=== PATIENT | female | born 1970 | race Caucasian/White ===

== ENCOUNTER 2023-03-02 12:27 | Emergency (ER) | payer BC ==
[2023-03-02 12:52] VITALS: BP 111/65; PULSE 66; RESP 18; TEMP 97.5
--- NOTE | 2023-03-02 14:42 | ED ---
General Adult HPI - General Source: patient, RN notes reviewed Mode of arrival: ambulatory Limitations: no limitations <Angela Morocho - Last Filed: 03/02/23 14:37> - General Source: patient, RN notes reviewed, old records reviewed <Zay Calderon - Last Filed: 03/02/23 23:36> - General Chief complaint: Abdominal Pain Stated complaint: Abd Pain Time Seen by Provider: 03/02/23 14:40 - History of Present Illness Initial comments: 52 year old female presents to the emergency department for evaluation of lower abdominal pain. She states that it has been going on for around 6 weeks. She has seen her specialty therapist for this and followed with a GI doctor in [place]. She reports that she has not had any recent imaging of her abdomen. She denies fever , chills, nausea, vomiting. She admits to intermittent constipation and diarrhea with bloating. (Angela Morocho) Patient is a 52-year-old female who was originally evaluated as a quick note. I evaluated the patient when she was placed in hallway bed 10. Presents with months of lower abdominal pain, abdominal bloating, as well as intermittent diarrhea and constipation. Recently moved here from [place]. Did see her PROGRAM MANAGEMENT INTERN. Was due to have a CAT scan [place] prior to moving however patient this was never done. Her PROGRAM MANAGEMENT INTERN cleared her. She is concerned patient because she does not know what is causing her discomfort. States it comes and goes in waves. Seems to be worse with any sort of eating. Last colonoscopy was 2 or 3 years ago which revealed 1 or 2 polyps but was otherwise unremarkable. Has no other significant past medical history. Presents for further evaluation at this time. Denies any nausea or vomiting. Denies any blood in her stool. Denies any other acute complaints. Has no urinary complaints. (Zay Calderon) - Related Data Previous Rx's Medication Instructions Recorded Dicyclomine [Bentyl] 10 mg PO TID PRN 7 Days #21 capsule 03/02/23 Allergies Allergy/AdvReac Type Severity Reaction Status Date / Time No Known Allergies Allergy Verified 03/02/23 12:43 Review of Systems ROS Other: All systems not noted in ROS Statement are negative. <Angela Morocho - Last Filed: 03/02/23 14:37> ROS Other: All systems not noted in ROS Statement are negative. <Zay Calderon - Last Filed: 03/02/23 23:36> ROS Statement: Those systems with pertinent positive or pertinent negative responses have been documented in the HPI. Review of Systems: CONST: Denies fever EYES: Denies blurry vision ENT: Denies nasal congestion C/V: Denies Chest pain RESP: Denies shortness of breath GI: Endorses abdominal pain : Denies dysuria SKIN: Denies rash. MSK: Denies joint pain. NEURO: Denies headache (Zay Calderon) Past Medical History Past Medical History: No Reported History History of Any Multi-Drug Resistant Organisms: None Reported Past Surgical History: No Surgical Hx Reported, Orthopedic Surgery Past Psychological History: No Psychological Hx Reported Smoking Status: Never smoker Past Alcohol Use History: None Reported Past Drug Use History: None Reported <Angela Morocho - Last Filed: 03/02/23 14:37> General Exam Limitations: no limitations <Angela Morocho - Last Filed: 03/02/23 14:37> <Zay Calderon - Last Filed: 03/02/23 23:36> - General Exam Comments Initial Comments: Visual Physical Exam Vital signs reviewed General: Well-appearing, nontoxic, no acute distress. Head: Normocephalic, atraumatic Eyes: PERRLA, EOMI ENT: Airway patent Chest: Nonlabored breathing Skin: No visual rash, normal skin tone Neuro: Alert and oriented 3 Musculoskeletal: No gross abnormalities (Angela Morocho) General: Appears in no acute distress. HEAD: Normal with no signs of head trauma. EYES: PERRLA, EOMI, conjunctiva normal, no discharge. ENT: Hearing grossly intact, normal oropharynx. RESPIRATORY: Clear breath sounds bilaterally. No wheezes, rales, or rhonchi. C/V: Regular rate and rhythm. S1 and S2 auscultated, no edema, peripheral pulses 2+ and intact throughout ABD: Abdomen is soft, nondistended. Tender to palpation primarily in the left lower quadrant, periumbilical region. No guarding. No rebound tenderness. No peritoneal signs. EXT: Normal range of motion, no obvious deformity SKIN: No rashes or lesions observed on exposed skin. NEURO: Alert and oriented x 4. (Zay Calderon) Course Vital Signs 03/02/23 12:40 Temperature 97.5 F L Pulse Rate 66 Respiratory 18 Rate Blood Pressure 111/65 O2 Sat by Pulse 99 Oximetry Medical Decision Making <Angela Morocho - Last Filed: 03/02/23 14:37> - Lab Data Result diagrams: 03/02/23 17:31 03/02/23 17:31 <Zay Calderon - Last Filed: 03/02/23 23:36> - Medical Decision Making Quick note preformed by Angela Morocho PA-C (Angela Morocho) Was pt. sent in by a medical professional or institution ([facility], [employer], urgent care, hospital, or usp...) When possible be specific @ -No Did you speak to anyone other than the patient for history (EMS, parent, family, police, friend...)? What history was obtained from this source @ -No Did you review nursing and triage notes (agree or disagree)? Why? @ -I reviewed and agree with nursing and triage notes Were old charts reviewed (outside hosp., previous admission, EMS record, old EKG, old radiological studies, urgent care reports/EKG's, usp records)? Report findings @ -No old charts were reviewed Differential Diagnosis (chest pain, altered mental status, abdominal pain women, abdominal pain men, vaginal bleeding, weakness, fever, dyspnea, syncope, headache, dizziness, GI bleed, back pain, seizure, CVA, palpatations, mental health, musculoskeletal)? @ -Differential Abdominal Pain Women: Appendicitis, Cholecystitis, diverticulosis, ischemic bowel, pancreatitis, hepatitis, UTI, gastroenteritis, AAA, incarcerated hernia, bowel obstruction, constipation, inflammatory bowel, hepatitis, peptic ulcer disease, splenic infarction, perforated viscus, vulvitis, ovarian torsion, PID, kidney stone, placenta abruption, this is not meant to be an all-inclusive list EKG interpreted by me (3pts min.). @ -None done X-rays interpreted by me (1pt min.). @ -None done CT interpreted by me (1pt min.). @ -CT imaging is also unremarkable. 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 U/S interpreted by me (1pt. min.). @ -None done What testing was considered but not performed or refused? (CT, X-rays, U/S, labs)? Why? @ -None What meds were considered but not given or refused? Why? @ -None Did you discuss the management of the patient with other professionals (professionals i.e. , PA, SWIMMING POOL INSTALLER, lab, RT, psych nurse, social insurance specialist, department director, teacher, health promotion officer, case management director)? Give summary @ -No Was smoking cessation discussed for >3mins.? @ -No Was critical care preformed (if so, how long)? @ -No Were there social determinants of health that impacted care today? How? (Homelessness, low income, unemployed, alcoholism, drug addiction, transport ation, low edu. Level, literacy, decrease access to med. care, fdc, rehab)? @ -No Was there de-escalation of care discussed even if they declined (Discuss DNR or withdrawal of care, Hospice)? DNR status @ -No What co-morbidities impacted this encounter? (DM, HTN, Smoking, COPD, CAD, Cancer, CVA, ARF, Chemo, Hep., AIDS, mental health diagnosis, sleep apnea, morbid obesity)? @ -None Was patient admitted / discharged? Hospital course, mention meds given and route, prescriptions, significant lab abnormalities, going to OR and other pertinent info. @ -Based on the patient's presentation and physical exam, I am concerned for possible intra-abdominal process for her symptoms have been ongoing for months. Will obtain laboratory studies as well as a CT. Patient was in agreement with this plan. She will be symptomatically treated with IV fluids, Zofran, Toradol, Protonix. Vital signs are within acceptable limits. She was in agreement this plan. Patient's laboratory studies are remarkable for no obvious acute process. No hematuria. CT imaging is also unremarkable. 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 Patient has no evidence of hematuria or renal dysfunction. On reevaluation, we did discuss her workup. She is feeling somewhat improved. I did recommend follow-up with GI as well as surgery. We discussed the findings on CT including the possibility of nutcracker syndrome however she has no evidence of hematuria or renal dysfunction at this time. She expressed understanding. She may require additional colonoscopy and scoping. She will follow-up with her PCP. I will provide the patient with a prescription for Bentyl. I instructed the patient to follow up with their PCP in the next 1-3 days. I provided contact information for follow up with surgery, gastroenterology, PCPs. I explained that the patient should return to the emergency department if they experience any worsening symptoms. Strict return precautions were discussed with the patient. The patient expressed understanding of these instructions. I answered all questions that the patient had. The patient was discharged home in fair condition with their prescriptions and follow up information. Undiagnosed new problem with uncertain prognosis? @ -No Drug Therapy requiring intensive monitoring for toxicity (Heparin, Nitro, Insulin, Cardizem)? @ -No Were any procedures done? @ -No Diagnosis/symptom? 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 @ -Acute on chronic Uncomplicated (without systemic symptoms) or Complicated (systemic symptoms)? @ -Complicated Side effects of treatment? @ -None Exacerbation, Progression, or Severe Exacerbation] @ -No Poses a threat to life or bodily function? @ -Unlikely (Zay Calderon) - Lab Data Lab Results 03/02/23 03/02/23 03/02/23 Range/Units 14:51 17:31 17:31 WBC 5.8 (3.8-10.6) k/uL RBC 4.06 (3.80-5.40) m/uL Hgb 13.0 (11.4-16.0) gm/dL Hct 38.1 (34.0-46.0) % MCV 94.0 (80.0-100.0) fL MCH 32.1 (25.0-35.0) pg MCHC 34.1 (31.0-37.0) g/dL RDW 12.1 (11.5-15.5) % Plt Count 243 (150-450) k/uL MPV 8.5 Neutrophils % 65 % Lymphocytes % 24 % Monocytes % 7 % Eosinophils % 1 % Basophils % 1 % Neutrophils # 3.8 (1.3-7.7) k/uL Lymphocytes # 1.4 (1.0-4.8) k/uL Monocytes # 0.4 (0-1.0) k/uL Eosinophils # 0.1 (0-0.7) k/uL Basophils # 0.1 (0-0.2) k/uL Sodium 138 (137-145) mmol/L Potassium 4.1 (3.5-5.1) mmol/L Chloride 105 (98-107) mmol/L Carbon Dioxide 26 (22-30) mmol/L Anion Gap 7 mmol/L BUN 15 (7-17) mg/dL Creatinine 0.77 (0.52-1.04) mg/dL Est GFR (CKD-EPI)AfAm >90 (>60 ml/min/1.73 sqM) Est GFR (CKD-EPI)NonAf 89 (>60 ml/min/1.73 sqM) Glucose 87 (74-99) mg/dL Plasma Lactic Acid Kiran (0.7-2.0) mmol/L Calcium 9.4 (8.4-10.2) mg/dL Total Bilirubin 0.4 (0.2-1.3) mg/dL AST 33 (14-36) U/L ALT 28 (4-34) U/L Alkaline Phosphatase 76 (38-126) U/L Total Protein 6.5 (6.3-8.2) g/dL Albumin 4.2 (3.5-5.0) g/dL Amylase 85 (30-110) U/L Lipase 130 (23-300) U/L Urine Color Yellow Urine Appearance Clear (Clear) Urine pH 6.0 (5.0-8.0) Ur Specific Amelia 1.020 (1.001-1.035) Urine Protein Trace H (Negative) Urine Glucose (UA) Negative (Negative) Urine Ketones Trace H (Negative) Urine Blood Negative (Negative) Urine Nitrite Negative (Negative) Urine Bilirubin Negative (Negative) Urine Urobilinogen <2.0 (<2.0) mg/dL Ur Leukocyte Esterase Negative (Negative) 03/02/23 Range/Units 17:31 WBC (3.8-10.6) k/uL RBC (3.80-5.40) m/uL Hgb (11.4-16.0) gm/dL Hct (34.0-46.0) % MCV (80.0-100.0) fL MCH (25.0-35.0) pg MCHC (31.0-37.0) g/dL RDW (11.5-15.5) % Plt Count (150-450) k/uL MPV Neutrophils % % Lymphocytes % % Monocytes % % Eosinophils % % Basophils % % Neutrophils # (1.3-7.7) k/uL Lymphocytes # (1.0-4.8) k/uL Monocytes # (0-1.0) k/uL Eosinophils # (0-0.7) k/uL Basophils # (0-0.2) k/uL Sodium (137-145) mmol/L Potassium (3.5-5.1) mmol/L Chloride (98-107) mmol/L Carbon Dioxide (22-30) mmol/L Anion Gap mmol/L BUN (7-17) mg/dL Creatinine (0.52-1.04) mg/dL Est GFR (CKD-EPI)AfAm (>60 ml/min/1.73 sqM) Est GFR (CKD-EPI)NonAf (>60 ml/min/1.73 sqM) Glucose (74-99) mg/dL Plasma Lactic Acid Kiran 0.7 (0.7-2.0) mmol/L Calcium (8.4-10.2) mg/dL Total Bilirubin (0.2-1.3) mg/dL AST (14-36) U/L ALT (4-34) U/L Alkaline Phosphatase (38-126) U/L Total Protein (6.3-8.2) g/dL Albumin (3.5-5.0) g/dL Amylase (30-110) U/L Lipase (23-300) U/L Urine Color Urine Appearance (Clear) Urine pH (5.0-8.0) Ur Specific Amelia (1.001-1.035) Urine Protein (Negative) Urine Glucose (UA) (Negative) Urine Ketones (Negative) Urine Blood (Negative) Urine Nitrite (Negative) Urine Bilirubin (Negative) Urine Urobilinogen (<2.0) mg/dL Ur Leukocyte Esterase (Negative) Disposition <Angela Morocho - Last Filed: 03/02/23 14:37> Is patient prescribed a controlled substance at d/c from ED?: No Time of Disposition: 19:00 <Zay Calderon - Last Filed: 03/02/23 23:36> Clinical Impression: Abdominal pain of unknown etiology Narrative: 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
[2023-03-02 15:10] LABS: Appearance,Urine Clear (Clear); Bilirubin,Urine Negative (Negative); Blood,Urine Negative (Negative); Color,Urine Yellow; Glucose,Urine (UA) Negative (Negative); Ketones,Urine Trace (Negative); Leukocyte Esterase,Urine Negative (Negative); Nitrite,Urine Negative (Negative); Protein,Urine Trace (Negative); Urobilinogen,Urine <2.0 mg/dL (<2.0)
[2023-03-02] MEDS: SODIUM CHLORIDE 0.9% 1,000 ML IV STA (17:37)
[2023-03-02] MEDS: PANTOPRAZOLE 40 MG/10 ML VIAL IVP STA (17:38)
[2023-03-02] MEDS: KETOROLAC 15 MG/ML 1 ML VIAL IVP STA (17:38)
[2023-03-02] MEDS: ONDANSETRON 4 MG/2 ML VIAL IVP STA (17:38)
[2023-03-02 17:47] LABS: Basophils # (A) 0.1 k/uL (0-0.2); Basophils % (A) 1 %; Eosinophils # (A) 0.1 k/uL (0-0.7); Eosinophils % (A) 1 %; HCT 38.1 % (34.0-46.0); Lymphocytes # (A) 1.4 k/uL (1.0-4.8); Lymphocytes % (A) 24 %; MCH 32.1 pg (25.0-35.0); MCHC 34.1 g/dL (31.0-37.0); Mean Platelet Volume 8.5; Monocytes # (A) 0.4 k/uL (0-1.0); Monocytes % (A) 7 %; Neutrophils # (A) 3.8 k/uL (1.3-7.7); Neutrophils % (A) 65 %; Platelet Count 243 k/uL (150-450); RBC 4.06 m/uL (3.80-5.40); RDW 12.1 % (11.5-15.5); WBC 5.8 k/uL (3.8-10.6)
[2023-03-02 18:04] LABS: ALT 28 U/L (4-34); AST 33 U/L (14-36); African American GFR (CKD) >90 (>60 ml/min/1.73 sqM); Albumin 4.2 g/dL (3.5-5.0); Alkaline Phosphatase 76 U/L (38-126); Amylase 85 U/L (30-110); Anion Gap 7 mmol/L; Blood Urea Nitrogen 15 mg/dL (7-17); Calcium 9.4 mg/dL (8.4-10.2); Carbon Dioxide 26 mmol/L (22-30); Chloride 105 mmol/L (98-107); Glucose 87 mg/dL (74-99); Lipase 130 U/L (23-300); Non-African American GFR(CKD) 89 (>60 ml/min/1.73 sqM); Potassium 4.1 mmol/L (3.5-5.1); Sodium 138 mmol/L (137-145); Total Bilirubin 0.4 mg/dL (0.2-1.3); Total Protein 6.5 g/dL (6.3-8.2)
--- NOTE | 2023-03-02 18:34 | CT ---
EXAMINATION TYPE: CT abdomen pelvis w con CT DLP: 458.9 mGycm, Automated exposure control for dose reduction was used. DATE OF EXAM: 03/02/2023 5:59 PM COMPARISON: None. CLINICAL INDICATION:Female, 52 years old with history of generalized lower abd pain; left lower abdom en and pelvic pain x 1 month TECHNIQUE: Axial CT abdomen pelvis w con;Sagittal and coronal reformats were created on a separate w orkstation. Contrast used:100 mL of Isovue 300 with IV Contrast, (none if empty) Oral contrast used: without Oral Contrast (none if empty) FINDINGS: LOWER CHEST: Partially visualized right breast implant. ABDOMEN LIVER: Unremarkable GALLBLADDER AND BILE DUCTS: Unremarkable. PANCREAS: Unremarkable. SPLEEN: Unremarkable. ADRENAL GLANDS: Unremarkable. KIDNEYS AND URETERS: No evidence of hydronephrosis or renal calculus. The ureters are unremarkable. PELVIS BLADDER: Unremarkable REPRODUCTIVE: Unremarkable. ABDOMEN & PELVIS STOMACH AND BOWEL: No evidence of bowel obstruction. Slitlike appearance of the duodenum as it crosse s the aorta in the superior mesenteric artery PERITONEUM/RETROPERITONEUM: No evidence of pneumoperitoneum or free fluid. VASCULATURE: No evidence of aortic aneurysm. Slitlike appearance of the of the left renal vein as it crosses the aorta. MUSCULOSKELETAL: No acute osseous abnormalities LYMPH NODES: No gross evidence for lymphadenopathy. SOFT TISSUE/ABDOMINAL WALL: Unremarkable IMPRESSION: 1. No definitive evidence for acute abdominal process. 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 Correlate with urinalysis. 2. Normal appendix, no obstructive uropathy.
== END 2023-03-02 19:25 | disposition home or self-care (01) ==
LOC: EC 12:27
DX: R10.32 Left lower quadrant pain (principal)
CPT/HCPCS: 99284 ×2; 96374 ×2; 96375 ×3; 96361 ×3; 36415; 80053; 82150; 83605; 83690; 85025; 81003; 74177; J2405; J1885; C9113; Q9967

== ENCOUNTER 2023-04-04 11:03 | Emergency (ER) | payer BC ==
[2023-04-04 11:38] VITALS: RESP 18; TEMP 98.2
[2023-04-04] MEDS: KETOROLAC 15 MG/ML 1 ML VIAL IVP STA ×2 (11:41→13:21)
--- NOTE | 2023-04-04 11:41 | ED ---
Extremity Problem HPI - General Chief complaint: Extremity Injury, Upper Stated complaint: Left Arm Pain Time Seen by Provider: 04/04/23 11:24 Source: patient, RN notes reviewed Mode of arrival: ambulatory Limitations: no limitations - History of Present Illness Initial comments: This is a 52 year old female who presents to the emergency department for left arm and shoulder pain. Reports ongoing problems with left arm and shoulder pain over the last couple of years. This was thought to be related to cubital tunnel syndrome. She had surgery for this in [place] 5 months ago. However, states that since the surgery symptoms have not gotten any better, and she thinks that she may be getting worse. Reports herniated discs in her neck that cause her p ain as well. She feels like something is getting "caught" or something is "stuck". The pain radiates from the shoulder down into her fingertips and the pain is making it hard to move the arm. She has since started to wear an arm sling. She took Percocet and Mobic before arrival without relief in symptoms. States that the Percocet was just leftover and she only had one tablet left. - Related Data Previous Rx's Medication Instructions Recorded Dicyclomine [Bentyl] 10 mg PO TID PRN 7 Days #21 capsule 03/02/23 methocarbamoL [Robaxin-750] 1,500 mg PO TID PRN #30 tab 04/04/23 predniSONE 50 mg PO DAILY 5 Days #5 tab 04/04/23 Allergies Allergy/AdvReac Type Severity Reaction Status Date / Time No Known Allergies Allergy Verified 03/02/23 12:43 Review of Systems ROS Statement: Those systems with pertinent positive or pertinent negative responses have been documented in the HPI. ROS Other: All systems not noted in ROS Statement are negative. Past Medical History Past Medical History: No Reported History History of Any Multi-Drug Resistant Organisms: None Reported Past Surgical History: No Surgical Hx Reported, Orthopedic Surgery Past Psychological History: No Psychological Hx Reported Smoking Status: Never smoker Past Alcohol Use History: None Reported Past Drug Use History: None Reported General Exam Limitations: no limitations General appearance: alert, in no apparent distress Head exam: Present: atraumatic, normocephalic, normal inspection Respiratory exam: Present: normal lung sounds bilaterally. Absent: respiratory distress, wheezes, rales, rhonchi, stridor Cardiovascular Exam: Present: regular rate, normal rhythm, normal heart sounds. Absent: systolic murmur, diastolic murmur, rubs, gallop, clicks Extremities exam: Present: other (Tenderness to palpation over the left shoulder and left lateral neck. ROM limited by pain.) Neurological exam: Present: alert, oriented X3, CN II-XII intact Psychiatric exam: Present: normal affect, normal mood Skin exam: Present: warm, dry, intact, normal color. Absent: rash Course Vital Signs 04/04/23 04/04/23 11:17 13:52 Temperature 98.2 F Pulse Rate 68 55 L Respiratory 18 18 Rate Blood Pressure 116/79 115/77 O2 Sat by Pulse 98 96 Oximetry Medical Decision Making - Medical Decision Making This is a 52 year old female who presents to the emergency department for left shoulder pain. Was pt. sent in by a medical professional or institution? @ -No Did you speak to anyone other than the patient for history? @ -No Did you review nursing and triage notes? @ -Yes, and I agree, it is accurate with regards to the patient's symptoms. Were old charts reviewed? @ -No Differential Diagnosis? @ -Differential Musculoskeletal: Muscular strain, contusion, ligament sprain, fracture, arthritis, septic arthritis, bursitis, cellulitis, muscle spasm, nerve compression, DVT, arterial occlusion, herpes zoster, electrolyte abnormality, tumor.... This is not meant to be in all inclusive list EKG interpreted by me (3pts min.)? @ -Not obtained X-rays interpreted by me (1pt min.)? @ -X-ray of the left shoulder, elbow, and cervical spine obtained. My interpretation identifies no acute fractures. CT interpreted by me (1pt min.)? @ -Not obtained U/S interpreted by me (1pt. min.)? @ -Not obtained What testing was considered but not performed? (CT, X-rays, U/S, labs)? Why? @ -None What meds were considered but not given? Why? @ -None Did you discuss the management of the patient with other professionals? @ -No Did you reconcile home meds? @ -No Was smoking cessation discussed for >3mins.? @ -No Was critical care preformed (if so, how long)? @ -No Were there social determinants of health that impacted care today? How? ( Homelessness, low income, unemployed, alcoholism, drug addiction, transportation, low edu. Level, literacy, decrease access to med. care, assisted, rehab)? @ -No Was there de-escalation of care discussed even if they declined? (Discuss DNR or withdrawal of care, Hospice)? @ -No What co-morbidities impacted this encounter? (DM, HTN, Smoking, COPD, CAD, Cancer, CVA, Hep., AIDS, mental health diagnosis, sleep apnea, morbid obesity)? @ -None Was patient admitted / discharged? @ -Discharged. X-ray of the left shoulder, elbow, and cervical spine obtained revealing no acute process. Symptoms controlled in the emergency department. Prescription for prednisone and Robaxin provided with dosing instructions revtue. She was also given information for follow-up with local orthopedic providers. Patient discharged home in stable condition. Undiagnosed new problem with uncertain prognosis? @ -None Drug Therapy requiring intensive monitoring for toxicity (Heparin, Nitro, Insulin, Cardizem)? @ -None Were any procedures done? @ -None Diagnosis/symptom? @ -Left shoulder pain Acute, or Chronic, or Acute on Chronic? @ -Chronic Uncomplicated (without systemic symptoms) or Complicated (systemic symptoms)? @ -Uncomplicated Side effects of treatment? @ -None Exacerbation, Progression, or Severe Exacerbation] @ -Exacerbation Poses a threat to life or bodily function? @ -This may limit her ability to use the left arm for the mean time. Return precautions reviewed in depth, the patient is instructed to return to the emergency department with any new, worsening, or concerning symptoms. Patient verbalized understanding. This case was discussed in detail with the attending ED physician, Dr. Brink. Presentation, findings, and treatment plan discussed in detail as well. - Radiology Data Radiology results: report reviewed, image reviewed Disposition Clinical Impression: Left arm pain Disposition: HOME SELF-CARE Instructions (If sedation given, give patient instructions): Shoulder Pain (ED) Additional Instructions: Return to the emergency department with any new, worsening, or concerning symptoms. Take the prednisone daily for 5 days. Take the Robaxin as 1-2 tablets up to 3-4 times daily. Be aware that both the [place] and Robaxin may make you drowsy. Contact orthopedics as listed below for a follow-up ap pointment and further evaluation of ongoing symptoms. Prescriptions: predniSONE 50 mg PO DAILY 5 Days #5 tab methocarbamoL [Robaxin-750] 1,500 mg PO TID PRN #30 tab PRN Reason: Pain Is patient prescribed a controlled substance at d/c from ED?: No Referrals: None,Stated [Primary Care Provider] - 1-2 days Elza Moya DO [Doctor of Osteopathic Medicine] - 1-2 days Time of Disposition: 13:19
[2023-04-04] MEDS: ORPHENADRINE 30 MG/ML 2 ML VIAL IVP STA (11:42)
[2023-04-04] MEDS: DEXAMETHASONE SOD PHOSPHATE 10 MG/ML 1 ML VIAL IVP STA (11:47)
--- NOTE | 2023-04-04 12:37 | XR ---
EXAMINATION TYPE: XR cervical spine 5 views comp, XR shoulder 3 views complete LT, XR elbow complete 3 views LT DATE OF EXAM: 04/04/2023 COMPARISON: None HISTORY: 52-year-old female neck and shoulder pain going down the arm FINDINGS: Cervical spine: No predental space widening or prevertebral soft tissue swelling. Moderate degenerative disc space na rrowing C5-C6. Remaining disc interspaces appear maintained. Alignment is preserved. Facet and uncove rtebral joint arthropathy mid to lower cervical spine. Limited assessment of the neuroforamen due to positioning of the bilateral oblique views. Normal odontoid view. Left shoulder: Minimal early degenerative spurring at the AC joint. Joint space appears preserved. Subacromial space preserved as well. No acute fracture, subluxation, dislocation. Left elbow: No joint effusion. No acute fracture, subluxation, dislocation. External artifacts project along the posterior aspect of the lower arm. IMPRESSION: 1. Cervical spine: Moderate focal spondylotic change C5-C6. No prevertebral soft tissue swelling or m alalignment. 2. Left shoulder: No acute osseous abnormality seen. 3. Left elbow: No acute osseous abnormality seen.
[2023-04-04] MEDS: MORPHINE SULFATE 2 MG/ML SYRINGE IVP STA (13:22)
[2023-04-04 14:09] VITALS: BP 115/77; PULSE 55
== END 2023-04-04 14:16 | disposition home or self-care (01) ==
LOC: EC 11:03
DX: M25.512 Pain in left shoulder (principal); M54.2 Cervicalgia
CPT/HCPCS: 72050; 73030; 73080; 99284; 96374; 96375 ×3; 96376; J1100; J2360; J2270; J1885